=== PATIENT | female | born 1965 | race Caucasian/White ===

== ENCOUNTER 2025-01-01 10:02 | Day surgery (SDC) | payer BC, SELFPAY ==
--- NOTE | 2025-01-01 10:01 | EXP.HP ---
History of Present Illness *Admission Date: 01/01/25 *Reason for visit:: Screening for colon cancer *History of present illness: Mrs. Pérez is a 59-year-old female who is here for screening for colon cancer. The examination is deemed medically necessary for screening colonoscopy. The patient has been seen, interviewed and examined prior to the procedure by both myself and the anesthesia provider. [facility] Disclaimer: The information contained in this section may have been updated after the patient was seen, as this information can be updated by other users. Medical History (Updated 01/01/25 @ 11:19 by Trevor Galvez II, MD) History of gastroesophageal reflux (GERD) History of anemia Ovarian cyst Surgical History (Updated 01/01/25 @ 10:32 by Whitney Gay RN) History of cholecystectomy History of section Family History (Updated 01/01/25 @ 10:36 by Whitney Gay RN) Mother Stroke Father Alpha 1-antitrypsin PiMS phenotype Social History (Updated 01/01/25 @ 10:58 by Shawn Rosario CRNA) Smoking Status: Never smoker alcohol intake: never substance use type: denies use current occupational status: other Travel in the last 8 weeks?: None Have you lived/traveled outside [place] in past 30 days?: No Contact w/someone who lives/traveled outside [place] past 30 days?: No Exposure to someone with infectious disease in past 14 days?: No Do you have a fever (greater than 100.4 F or 38 C)?: No Have you tested positive for COVID-19?: No Exposed to someone with COVID-19 in past 14 days?: No Do you have a sore throat?: No Do you have a cough?: No Do you have any weakness?: No Do you have any diarrhea?: No Are you experiencing any unusual bleeding?: No Do you have any muscle aches/pain?: No Do you have any abdominal pain?: No Are you experiencing loss of taste or smell?: No Review of Systems Review of Systems Review of systems (narrative): Negative *Cardiovascular Comments: Negative *Gastrointestinal Comments: Negative *Genitourinary Comments: Negative *Musculoskeletal Comments: Negative *Neurologic Comments: Negative Meds Home Medications and Allergies Home Medications ?Medication ?Instructions ?Recorded ?Confirmed ?Type sodium,potassium,mag sulfates 17.5 See Rx Instructions PO .COMPLEX 12/22/24 Rx gram-3.13 gram-1.6 gram oral soln #354 mL (Suprep Bowel Prep Kit) cholecalciferol (vitamin D3) 50 50 mcg PO DAILY 01/01/25 01/01/25 History mcg (2,000 unit) capsule (Vitamin D3) esomeprazole magnesium 20 mg 20 mg PO DAILY 01/01/25 01/01/25 History capsule,delayed release (Nexium) famotidine 20 mg tablet (Pepcid) 20 mg PO DAILY 01/01/25 01/01/25 History krill oil 500 mg capsule 500 mg PO DAILY 01/01/25 01/01/25 History psyllium husk 0.4 gram capsule 0.16 g PO DAILY 01/01/25 01/01/25 History (Metamucil) simethicone 125 mg tablet 125 mg PO DAILY 01/01/25 01/01/25 History vitamin B12 2,500 mcg-folic acid 1 tab PO DAILY 01/01/25 01/01/25 History 400 mcg disintegrating tablet New Prescriptions to Start Prescriptions: Allergies Allergy/AdvReac Type Severity Reaction Status Date / Time morphine (From Duramorph Allergy Other Verified 01/01/25 10:37 (PF)) Exam *Routine HEENT Exam Head: Present normocephalic Eye: Present EOMI and PERRL ENT: Present mucous membranes moist *Routine Neck Exam Neck: Present supple *Routine Respiratory Exam Respiratory: Present CTA bilaterally *Routine Cardiovascular Exam Cardiovascular: Present RRR *Routine Abdominal Exam Abdominal: Present soft and normoactive bowel sounds; Absent tenderness *Routine Rectal Exam Rectal:: deferred *Routine Genitalia Exam Genitalia:: deferred *Routine Extremities Exam Extremities: Absent cyanosis, clubbing or edema *Routine Skin Exam Skin: Present warm; Absent rash *Routine Neurological Exam Neurological: Present alert and oriented X3 Assessment and Plan *Assessment and plan (1) Screening for colon cancer: Status: Acute Category: Medical Code(s): Z12.11 - Encounter for screening for malignant neoplasm of colon Plan A/P: 1. Screening for colon cancer is the preprocedural diagnosis. The patient will be anesthetized/sedated using MAC sedation. The patient has been seen and examined. Cardiac and lung assessment prior to the examination is stable. Proceed with planned screening colonoscopy.
[2025-01-01 10:27] VITALS: BMI 24.2
[2025-01-01 10:47] VITALS: BP 125/83; PULSE 73; RESP 18; TEMP 36.3; O2SAT 98
[2025-01-01] MEDS: LACTATED RINGERS 1000ML 1,000 ML 50 ML IV (10:55)
--- NOTE | 2025-01-01 10:57 | EXP.ANES.CKL ---
[facility] Disclaimer: The information contained in this section may have been updated after the patient was seen, as this information can be updated by other users. Medical History (Updated 01/01/25 @ 10:34 by Whitney Gay RN) History of gastroesophageal reflux (GERD) History of anemia Ovarian cyst Surgical History (Updated 01/01/25 @ 10:32 by Whitney Gay RN) History of cholecystectomy History of section Family History (Updated 01/01/25 @ 10:36 by Whitney Gay RN) Mother Stroke Father Alpha 1-antitrypsin PiMS phenotype Social History Smoking Status: Never smoker alcohol intake: never substance use type: denies use current occupational status: other Travel in the last 8 weeks?: None [facility] Anesthesia Checklist Patient Identification Patient Identification: Arm Band and Verbal (Name & ) Structural Data Admitted From: Home Planned Operative Procedure/s: colonoscopy Consent for Planned Operative Procedure(s) Verified: Yes Verified Documents: Surgical Consent NPO Status Verified Time NPO: 00:00 Chart Verification Results Verified: None Additional verifications Anesthesia Reactions: No Airway Assessment Mallampati Score:: Class II C-Spine Mobility Assessed: Yes TMJ Mobility Assessed: Yes Dentition: Good Dentition Neurological Assessment Level of Consciousness: Awake, Alert and Appropriate Hx Seizures: No Numbness or tingling in extremities: No Anesthesia Plan Anesthesia Risk discussed: Yes Anesthesia Plan: Verified ASA Class: II Anesthesia Type: MAC
--- NOTE | 2025-01-01 11:20 | HMH.PROCNOTE ---
[facility] Procedure Note Date: 01/01/25 Time: 11:35 Procedure Note:: Colonoscopy Procedure Report: Colonoscopy Endoscopist: Trevor Galvez II, MD Referring physician: BRANDAN Castelan Date of Procedure: January 01, 2025 Equipment: Olympus 190 variable stiffness pediatric colonoscope Sedation: MAC sedation Indication: Mrs. Pérez is a 59-year-old female who is here for screening colonoscopy. Her last colonoscopy was 10 years ago and was normal. She reports no abdominal pain, weight loss, change in her bowel habits or rectal bleeding. She reports no family history of colon cancer. Procedure: Prior to the procedure, a history and physical exam was performed, and patient's medications and allergies were reviewed. The risks, benefits and alternatives of the sedation and procedure were discussed with the patient. All questions were answered and informed consent was obtained. The patient was brought to the procedure room. Patient identification and proposed procedure were verified by the physician and the nurse. The patient was placed in a left lateral decubitus position and the scope was passed under direct vision. Throughout the procedure, the patient's blood pressure, pulse, and oxygen saturations were monitored continuously. The colonoscopy was accomplished without difficulty. The patient tolerated the procedure well. Findings: On digital rectal examination there was normal rectal tone. There were no external hemorrhoids. The colonoscope was introduced through the anal canal to the rectum and advanced to the cecum. The ileocecal valve and appendiceal orifice were identified. The scope was advanced a short distance into the ileum which appeared grossly normal. The scope was then withdrawn into the colon. The cecum, ascending, transverse, descending, sigmoid and rectum were grossly normal. There were no mucosal abnormalities identified. Upon retroflexion within the rectum there were grade 1-2 internal hemorrhoids. The preparation was excellent throughout with [place] Preparation Score of 9. The cecal time was 10 minutes. Impression: 1. Normal colonoscopy with intubation of the terminal ileum Plan: The patient will not require surveillance colonoscopy again for 10 years by ACS guidelines.
[2025-01-01 11:38] VITALS: BP 88/52; PULSE 73; RESP 15; TEMP 36.8; O2SAT 97
[2025-01-01 11:48] VITALS: BP 92/51; PULSE 67; RESP 16; TEMP 36.8; O2SAT 98
[2025-01-01 11:58] VITALS: BP 104/59; PULSE 64; RESP 18; TEMP 36.8; O2SAT 98
[2025-01-01 12:08] VITALS: BP 115/67; PULSE 67; RESP 18; TEMP 36.8; O2SAT 97
== END 2025-01-01 12:24 | disposition home or self-care (01) ==
PROVIDERS: PCP Nurse Practitioner Family; Visit Provider Internal Medicine Gastroenterology
PROC: 0DJD8ZZ Inspection of Lower Intestinal Tract, Via Natural or Artificial Opening Endoscopic (ICD-10-PCS; CPT 45378; principal; 2025-01-01 11:30)
DX: Z12.11 Encounter for screening for malignant neoplasm of colon (principal); K21.9 Gastro-esophageal reflux disease without esophagitis; Z79.899 Other long term (current) drug therapy
CPT/HCPCS: 45378; J2003; J2704; J7120